=== PATIENT | female | born 1955 | race American Indian/Alaskan Native ===

== ENCOUNTER 2017-06-23 06:41 | Day surgery (SDC) | payer MEDICAID ==
[2017-06-23 07:01] VITALS: BMI 30.9
[2017-06-23] MEDS ORDERED: Propofol 10 mg/ml Inj (20 ML) ONE (08:33)
[2017-06-23] MEDS ORDERED: Midazolam 2 MG/2 ML VIAL ONE (08:34)
[2017-06-23] MEDS ORDERED: Lactated Ringer's 1,000 ML IV ONE (08:35)
[2017-06-23 09:46] VITALS: TEMP 97
[2017-06-23 10:10] VITALS: BP 130/67; PULSE 70; RESP 15; O2SAT 98
== END 2017-06-23 10:00 | disposition home or self-care (01) ==
LOC: C.ENDO 06:41
PROVIDERS: ATTEND Internal Medicine Gastroenterology
DX: K57.90 Diverticulosis of intestine, part unspecified, without perforation or abscess without bleeding (principal); K64.8 Other hemorrhoids
CPT/HCPCS: 45378; J2001; J2250; J2704; J7120